=== PATIENT | female | born 1940 | race African-American/Black ===

== ENCOUNTER 2021-06-11 01:18 | Inpatient (IN) | payer OTHER, MEDICAID ==
[~2021-06-11] VITALS: Ht 162.6 cm; Wt 52.6 kg
[2021-06-11] MEDS ORDERED: VANCOMYCIN 1 G PREMIX 200 ML IV ONE (01:30)
[2021-06-11] MEDS ORDERED: SODIUM CHLORIDE 0.9% 1000ML BAG (SEPSIS BOLUS) IV ONE (01:30)
[2021-06-11] MEDS ORDERED: PIPERACILLIN/TAZ 3.375G PREMIX 50 ML IV ONE (01:30)
[2021-06-11] MEDS ORDERED: NOREPINEPHRINE 8MG/250ML PMX 250 ML IV ONE (02:45)
[2021-06-11 03:14] LABS: BASOPHILS % 0.5 % (0.0-2.0); EOSINOPHILS % 1.2 % (0.0-5.0); HEMATOCRIT. 34.7 % (36.0-48.0); MEAN CORPUSCULAR VOLUME 88.1 fL (81.0-99.0); MEAN PLATELET VOLUME 8.4 fl (7.4-10.4); MONOCYTES % 8.3 % (2.0-8.0); PLATELET 176 x1000/uL (130-400); RED BLOOD CELL COUNT 3.94 mill/uL (4.2-5.4); RED CELL DISTRIBUTION WIDTH 15.6 % (11.6-14.6)
[2021-06-11 03:29] LABS: INR 1.3; PARTIAL THROMBOPLASTIN TIME 29.5 sec (23.4-31.0); PROTHROMBIN TIME 13.9 sec (9.6-11.0)
[2021-06-11 03:36] LABS: CHLORIDE 111 mEq/L (98-107)
[2021-06-11 08:50] VITALS: BP 144/77
[2021-06-11 09:56] VITALS: BP 144/77
[2021-06-11] MEDS ORDERED: CEFTRIAXONE 1 G PREMIX 50 ML IV SCH (11:00)
[2021-06-11] MEDS ORDERED: CLONIDINE 0.1MG TABLET PO PRN (11:00)
[2021-06-11] MEDS ORDERED: GUAIFENESIN 200MG/10ML SUGAR FREE UDC PO PRN (11:00)
[2021-06-11] MEDS ORDERED: DOCUSATE SODIUM 100MG CAPSULE PO PRN (11:00)
[2021-06-11] MEDS ORDERED: MAGNESIUM/ALUMINUM HYDROXIDE/SIMETHICONE 30ML UDC PO PRN (11:00)
[2021-06-11] MEDS ORDERED: NA PHOS,M-B/NA PHOS,DI-BA ENEMA 118ML PR PRN (11:00)
[2021-06-11] MEDS ORDERED: LORAZEPAM 0.5MG TABLET PO PRN (11:00)
[2021-06-11] MEDS ORDERED: ACETAMINOPHEN 650MG/20.3ML UDC GT PRN (11:00)
[2021-06-11] MEDS ORDERED: DIPHENHYDRAMINE 50MG/ML VIAL IV PRN (11:00)
[2021-06-11] MEDS ORDERED: HYDROCODONE/ACETAMINOPHEN 5/325MG TABLET PO PRN (11:00)
[2021-06-11] MEDS ORDERED: ONDANSETRON HCL 4MG/2ML INJ IV PRN (11:00)
[2021-06-11] MEDS ORDERED: ACETAMINOPHEN 650MG SUPP PR PRN (11:00)
[2021-06-11] MEDS ORDERED: IPRATROPIUM/ALBUTEROL 0.5-3(2.5)MG/3ML NEB NEB PRN (11:00)
[2021-06-11 12:00] VITALS: BP 178/90
[2021-06-11] MEDS ORDERED: ENOXAPARIN 40MG/0.4ML SYR SUBCUT SCH (12:00)
[2021-06-11] MEDS ORDERED: CEFTRIAXONE 1,000 MG in DEXTROSE 5% WATER 50 ML IV SCH (13:00)
[2021-06-11] MEDS ORDERED: POTASSIUM CHLORIDE 20MEQ TABLET SR PO NR (14:30)
[2021-06-11 16:00] VITALS: BP 122/80
[2021-06-11] MEDS ORDERED: LORAZEPAM 2MG/ML CPJ IV PRN (19:00)
[2021-06-11 20:00] VITALS: BP 132/75
[2021-06-11] MEDS ORDERED: NALOXONE HCL 0.4MG/ML VIAL IV PRN (20:15)
[2021-06-11] MEDS ORDERED: FAMOTIDINE 20MG TABLET PO SCH (21:00)
== END 2021-06-11 21:50 | disposition left against medical advice (07) | DRG 71 ==
LOC: ER 01:18 → 6WST 03:51 → EDBEDREQSVC 03:54 → EDBEDREQTM 03:54 → EDBEDREQ 03:54 → ENRESERV 07:39
PROVIDERS: ADMIT Internal Medicine; ATTEND Internal Medicine
DX: G93.41 Metabolic encephalopathy (principal); E44.0 Moderate protein-calorie malnutrition; Z68.1 Body mass index [BMI] 19.9 or less, adult; F03.90 Unspecified dementia, unspecified severity, without behavioral disturbance, psychotic disturbance, mood disturbance, and anxiety; I10 Essential (primary) hypertension; E87.6 Hypokalemia; D64.9 Anemia, unspecified; E88.09 Other disorders of plasma-protein metabolism, not elsewhere classified; R73.9 Hyperglycemia, unspecified; M24.541 Contracture, right hand; Z53.29 Procedure and treatment not carried out because of patient's decision for other reasons; Z20.822 Contact with and (suspected) exposure to COVID-19
CPT/HCPCS: 36415; 71045; 80053; 83605; 84145; 84484; 85025; 87426; 92610; 93005; 93970; 99285; J0696; J1650; J2543; J3370; J7030; J7060